=== PATIENT | female | born 1960 | race African-American/Black ===

== ENCOUNTER 2018-08-04 15:04 | Inpatient (IN) | payer MEDICAID ==
[~2018-08-04] VITALS: Ht 172.7 cm; Wt 69.9 kg
[2018-08-04] MEDS ORDERED: INSU100I28 SQ (15:10)
[2018-08-04 18:04] LABS: HEMATOCRIT. 34.2 % (36.0-48.0); HEMOGLOBIN. 10.9 g/dL (12.0-16.0); MEAN CORPUSCULAR HEMOGLOBIN 27.9 pg (28.0-32.0); MEAN CORPUSCULAR VOLUME 87.9 fL (81.0-99.0); MEAN PLATELET VOLUME 8.5 fl (7.4-10.4); PLATELET 456 x1000/uL (130-400); RED CELL DISTRIBUTION WIDTH 15.9 % (11.6-14.6)
[2018-08-04 18:06] LABS: CHLORIDE 90 mEq/L (98-107)
[2018-08-04] MEDS ORDERED: INSULIN REGULAR (DRIP) 100 UNITS in SODIUM CHLORIDE 0.9% 100 ML IV ONE (19:00)
[2018-08-04 19:04] LABS: HEPATITIS A AB IGM NEGATIVE (NEGATIVE)
[2018-08-04 19:38] LABS: PLATELET ESTIMATE INCREASED
[2018-08-04] MEDS ORDERED: INSULIN REGULAR (DRIP) 100 UNITS in SODIUM CHLORIDE 0.9% 100 ML IV SCH (19:45)
[2018-08-04 22:30] VITALS: BP_SYST 107; BP_SYST 113; BP_DIAS 63; BP_DIAS 67
[2018-08-04 22:45] VITALS: BP 124/83
[2018-08-04 23:00] VITALS: BP 119/72
[2018-08-04 23:15] VITALS: BP 115/72
[2018-08-04 23:30] VITALS: BP 105/71
[2018-08-04 23:45] VITALS: BP 101/69
[2018-08-05] VITALS (42 sets, daily range): BP systolic 86–135; BP diastolic 47–75
[2018-08-05 00:46] LABS: CLARITY URINE TURBID (CLEAR); COLOR URINE YELLOW (YELLOW); KETONES URINE 3+ (NEGATIVE); LEUKOCYTE ESTERASE URINE 3+ (NEGATIVE); NITRITE URINE NEGATIVE (NEGATIVE); OCCULT BLOOD URINE 3+ (NEGATIVE); PROTEIN URINE 2+ (NEGATIVE); SPECIFIC GRAVITY URINE 1.017 (1.005-1.030); UROBILINOGEN URINE 0.2 E.U./dL (0.2-1.0)
[2018-08-05 01:05] LABS: *AMPHETAMINES SCREEN URINE NEGATIVE (NEGATIVE); *BARBITURATES SCREEN URINE NEGATIVE (NEGATIVE); *BENZODIAZEPINES SCREEN URINE NEGATIVE (NEGATIVE); *COCAINE SCREEN URINE NEGATIVE (NEGATIVE); METHADONE URINE SCREEN NEGATIVE (NEGATIVE); OPIATES URINE SCREEN NEGATIVE (NEGATIVE)
[2018-08-05 01:06] LABS: CANNABINOID URINE SCREEN NEGATIVE (NEGATIVE); PHENCYCLIDINE URINE SCREEN NEGATIVE (NEGATIVE)
[2018-08-05 01:10] LABS: CHLORIDE 96 mEq/L (98-107)
[2018-08-05] MEDS: SODIUM CHLORIDE 0.45% 1,000 ML IV SCH ×2 (02:01→09:05)
[2018-08-05] MEDS: MORPHINE SULFATE 2 MG/ML CPJ (NOT FOR IM USE) IV PRN ×2 (02:08→23:23)
[2018-08-05] MEDS ORDERED: INSULIN REGULAR (DRIP) 100 UNITS in SODIUM CHLORIDE 0.9% 99 ML IV PRN (03:00)
[2018-08-05] MEDS: ONDANSETRON HCL 4MG/2ML INJ IV PRN ×2 (04:16→23:21)
[2018-08-05] MEDS ORDERED: DIPH1TAB PO (06:00)
[2018-08-05] MEDS ORDERED: HYDR-3282 PO (06:00)
[2018-08-05] MEDS ORDERED: INSULIN (06:00)
[2018-08-05 06:21] LABS: CHLORIDE 98 mEq/L (98-107)
[2018-08-05] MEDS: ENOXAPARIN 40MG/0.4ML SYR SUBCUT SCH (09:05)
[2018-08-05] MEDS ORDERED: DEXT 5%/0.45% NACL 1000ML 1,000 ML IV SCH (10:45)
[2018-08-05 12:28] LABS: HEPATITIS B SURFACE ANTIGEN NEGATIVE
[2018-08-05] MEDS: NYSTATIN POWDER 15GM TOP SCH ×2 (12:41→17:32)
[2018-08-05] MEDS: PIPERACILLIN/TAZ 3.375G PREMIX 50 ML IV SCH ×3 (12:41→23:21)
[2018-08-05] MEDS: OMEPRAZOLE 20MG CAPSULE EXTENDED RELEASE PO SCH (12:41)
[2018-08-05 13:19] LABS: HEMATOCRIT. 30.1 % (36.0-48.0); HEMOGLOBIN. 10.1 g/dL (12.0-16.0); MEAN CORPUSCULAR HEMOGLOBIN 27.5 pg (28.0-32.0); MEAN CORPUSCULAR VOLUME 81.9 fL (81.0-99.0); PLATELET 439 x1000/uL (130-400); RED BLOOD CELL COUNT 3.68 mill/uL (4.2-5.4); RED CELL DISTRIBUTION WIDTH 15.7 % (11.6-14.6)
[2018-08-05 13:43] LABS: CHLORIDE 100 mEq/L (98-107)
[2018-08-05 14:23] LABS: PLATELET ESTIMATE INCREASED
[2018-08-05] MEDS ORDERED: DEXTROSE 50% WATER 50ML SYRINGE IV PRN ×3 (17:00→18:45)
[2018-08-05] MEDS ORDERED: INSULIN REGULAR (DRIP) 100 UNITS in SODIUM CHLORIDE 0.9% 100 ML IV SCH (17:00)
[2018-08-05] MEDS: BLOOD SUGAR DIAGNOSTIC STRIP TEST SCH ×3 (17:26→21:06)
[2018-08-05] MEDS ORDERED: SODIUM CHLORIDE 0.9% 1,000 ML IV SCH (18:00)
[2018-08-05] MEDS ORDERED: INSULIN GLARGINE UD 100 UNITS/ML SYR SUBCUT SCH (19:00)
[2018-08-05] MEDS: INSULIN GLARGINE UD 100 UNITS/ML SYR SUBCUT SCH ×3 (19:13→22:22)
[2018-08-05] MEDS: INSULIN LISPRO 100 UNITS/ML SUBCUT SCH ×2 (19:15→21:07)
[2018-08-05] MEDS ORDERED: BLOOD SUGAR DIAGNOSTIC STRIP TEST SCH (21:00)
[2018-08-06] VITALS (24 sets, daily range): BP systolic 90–135; BP diastolic 33–77
[2018-08-06 04:56] LABS: HEMOGLOBIN. 9.8 g/dL (12.0-16.0); MEAN CORPUSCULAR HEMOGLOBIN 27.4 pg (28.0-32.0); MEAN CORPUSCULAR VOLUME 81.4 fL (81.0-99.0); MEAN PLATELET VOLUME 7.6 fl (7.4-10.4); PLATELET 406 x1000/uL (130-400); RED BLOOD CELL COUNT 3.56 mill/uL (4.2-5.4); RED CELL DISTRIBUTION WIDTH 15.5 % (11.6-14.6)
[2018-08-06 05:06] LABS: CHLORIDE 100 mEq/L (98-107)
[2018-08-06] MEDS: PIPERACILLIN/TAZ 3.375G PREMIX 50 ML IV SCH ×3 (06:15→17:45)
[2018-08-06] MEDS: SODIUM CHLORIDE 0.9% 1,000 ML IV SCH ×2 (06:16→22:18)
[2018-08-06 06:59] LABS: PLATELET ESTIMATE NORMAL
[2018-08-06] MEDS ORDERED: DEXT 5% WATER + KCL 40MEQ/L 250 ML IV SCH (07:00)
[2018-08-06] MEDS: INSULIN LISPRO 100 UNITS/ML SUBCUT SCH ×7 (07:56→22:14)
[2018-08-06] MEDS: BLOOD SUGAR DIAGNOSTIC STRIP TEST SCH ×4 (07:57→21:00)
[2018-08-06] MEDS: OMEPRAZOLE 20MG CAPSULE EXTENDED RELEASE PO SCH (08:01)
[2018-08-06] MEDS ORDERED: POTASSIUM CHLORIDE 20MEQ TABLET SR PO NR (09:15)
[2018-08-06] MEDS: ENOXAPARIN 40MG/0.4ML SYR SUBCUT SCH (10:08)
[2018-08-06] MEDS: POTASSIUM CHLORIDE INJ 40 MEQ in DEXT 5% WATER 250 ML IV NR (10:10)
[2018-08-06] MEDS: NYSTATIN POWDER 15GM TOP SCH ×3 (10:14→17:46)
[2018-08-06 16:37] LABS: T4 FREE 1.01 ng/dL (0.76-1.46)
[2018-08-06 17:38] LABS: FOLIC ACID (FOLATE) SERUM 7.5 ng/mL (>5.38)
[2018-08-06] MEDS ORDERED: INSULIN GLARGINE UD 100 UNITS/ML SYR SUBCUT SCH (22:00)
[2018-08-07] VITALS (25 sets, daily range): BP systolic 78–145; BP diastolic 45–117
[2018-08-07] MEDS: PIPERACILLIN/TAZ 3.375G PREMIX 50 ML IV SCH ×2 (01:01→07:06)
[2018-08-07] MEDS: MORPHINE SULFATE 2 MG/ML CPJ (NOT FOR IM USE) IV PRN (01:03)
[2018-08-07 05:52] LABS: HEMOGLOBIN. 9.7 g/dL (12.0-16.0); MEAN CORPUSCULAR HEMOGLOBIN 27.5 pg (28.0-32.0); MEAN PLATELET VOLUME 7.8 fl (7.4-10.4); PLATELET 446 x1000/uL (130-400); RED BLOOD CELL COUNT 3.53 mill/uL (4.2-5.4); RED CELL DISTRIBUTION WIDTH 15.8 % (11.6-14.6)
[2018-08-07 06:02] LABS: CHLORIDE 103 mEq/L (98-107)
[2018-08-07] MEDS: BLOOD SUGAR DIAGNOSTIC STRIP TEST SCH ×4 (07:51→21:51)
[2018-08-07] MEDS: ENOXAPARIN 40MG/0.4ML SYR SUBCUT SCH (08:36)
[2018-08-07] MEDS: INSULIN LISPRO 100 UNITS/ML SUBCUT SCH ×7 (08:39→21:00)
[2018-08-07] MEDS: SODIUM CHLORIDE 0.9% 1,000 ML IV SCH ×2 (08:40→13:02)
[2018-08-07] MEDS ORDERED: FAMOTIDINE 20MG TABLET PO SCH (09:00)
[2018-08-07] MEDS: OMEPRAZOLE 20MG CAPSULE EXTENDED RELEASE PO SCH ×2 (10:58→21:49)
[2018-08-07] MEDS: NYSTATIN POWDER 15GM TOP SCH ×3 (10:59→17:53)
[2018-08-07] MEDS: LEVOFLOXACIN 750MG PREMIX 150 ML IV SCH (13:02)
[2018-08-07] MEDS: INSULIN GLARGINE UD 100 UNITS/ML SYR SUBCUT SCH (21:51)
[2018-08-08] MEDS: MORPHINE SULFATE 2 MG/ML CPJ (NOT FOR IM USE) IV PRN (00:41)
[2018-08-08 04:00] VITALS: BP 112/72
[2018-08-08] MEDS: BLOOD SUGAR DIAGNOSTIC STRIP TEST SCH ×4 (05:57→21:04)
[2018-08-08] MEDS: OMEPRAZOLE 20MG CAPSULE EXTENDED RELEASE PO SCH ×2 (06:10→21:05)
[2018-08-08 08:00] VITALS: BP 102/66
[2018-08-08] MEDS: INSULIN LISPRO 100 UNITS/ML SUBCUT SCH ×7 (08:19→21:00)
[2018-08-08] MEDS: ENOXAPARIN 40MG/0.4ML SYR SUBCUT SCH (08:36)
[2018-08-08] MEDS: SODIUM CHLORIDE 0.9% 1,000 ML IV SCH (10:36)
[2018-08-08] MEDS: NYSTATIN POWDER 15GM TOP SCH ×3 (10:37→17:47)
[2018-08-08] MEDS: LEVOFLOXACIN 750MG PREMIX 150 ML IV SCH (11:20)
[2018-08-08 12:00] VITALS: BP 100/60
[2018-08-08 12:49] LABS: PLATELET ESTIMATE SLIGHTLY INCREASED
[2018-08-08 16:30] VITALS: BP 102/60
[2018-08-08] MEDS ORDERED: DIPHENOXYLATE/ATROPINE 2.5/0.025MG TABLET PO PRN (17:15)
[2018-08-08 20:00] VITALS: BP 118/77
[2018-08-08] MEDS: INSULIN GLARGINE UD 100 UNITS/ML SYR SUBCUT SCH (21:05)
[2018-08-09] VITALS: BP 127/77
[2018-08-09] MEDS: SODIUM CHLORIDE 0.9% 1,000 ML IV SCH ×2 (00:52→15:08)
[2018-08-09 04:00] VITALS: BP 131/76
[2018-08-09] MEDS: BLOOD SUGAR DIAGNOSTIC STRIP TEST SCH ×4 (06:31→21:00)
[2018-08-09 08:00] VITALS: BP 129/78
[2018-08-09] MEDS: OMEPRAZOLE 20MG CAPSULE EXTENDED RELEASE PO SCH ×2 (09:30→22:11)
[2018-08-09] MEDS: ENOXAPARIN 40MG/0.4ML SYR SUBCUT SCH (09:30)
[2018-08-09] MEDS: INSULIN LISPRO 100 UNITS/ML SUBCUT SCH ×7 (09:32→21:00)
[2018-08-09] MEDS: NYSTATIN POWDER 15GM TOP SCH ×3 (09:34→19:02)
[2018-08-09 10:56] LABS: HEMATOCRIT. 27.7 % (36.0-48.0); HEMOGLOBIN. 9.1 g/dL (12.0-16.0); MEAN CORPUSCULAR HEMOGLOBIN 27.1 pg (28.0-32.0); MEAN CORPUSCULAR VOLUME 82.9 fL (81.0-99.0); MEAN PLATELET VOLUME 7.2 fl (7.4-10.4); PLATELET 450 x1000/uL (130-400); RED BLOOD CELL COUNT 3.34 mill/uL (4.2-5.4); RED CELL DISTRIBUTION WIDTH 15.9 % (11.6-14.6)
[2018-08-09 11:20] LABS: CHLORIDE 106 mEq/L (98-107)
[2018-08-09] MEDS: LEVOFLOXACIN 750MG PREMIX 150 ML IV SCH (11:57)
[2018-08-09 12:00] VITALS: BP 120/72
[2018-08-09 16:00] VITALS: BP 120/75
[2018-08-09 17:44] LABS: PLATELET ESTIMATE INCREASED
[2018-08-09 20:00] VITALS: BP 115/65
[2018-08-09] MEDS: INSULIN GLARGINE UD 100 UNITS/ML SYR SUBCUT SCH (22:39)
[2018-08-09] MEDS ORDERED: ALPRAZOLAM 0.25 MG TABLET PO PRN (22:45)
[2018-08-10] VITALS (7 sets, daily range): BP systolic 103–139; BP diastolic 68–81
[2018-08-10] MEDS: SODIUM CHLORIDE 0.9% 1,000 ML IV SCH (02:37)
[2018-08-10] MEDS: BLOOD SUGAR DIAGNOSTIC STRIP TEST SCH ×3 (07:40→17:40)
[2018-08-10] MEDS: INSULIN LISPRO 100 UNITS/ML SUBCUT SCH ×6 (08:10→19:43)
[2018-08-10] MEDS: OMEPRAZOLE 20MG CAPSULE EXTENDED RELEASE PO SCH (09:30)
[2018-08-10] MEDS: NYSTATIN POWDER 15GM TOP SCH ×3 (09:31→19:42)
[2018-08-10] MEDS: ENOXAPARIN 40MG/0.4ML SYR SUBCUT SCH (09:31)
[2018-08-10] MEDS: LEVOFLOXACIN 750MG PREMIX 150 ML IV SCH (11:15)
[2018-08-11] MEDS ORDERED: LEVOFLOXACIN 250MG TABLET PO SCH (11:00)
== END 2018-08-10 20:18 | DRG 720 ==
LOC: ER 15:04 → EDBEDREQ 19:57 → CVICU 20:01 → EDBEDREQTM 20:06 → EDBEDREQ 20:06 → ENRESERV 21:20 → 7WST 08-07 23:21
PROVIDERS: ADMIT Internal Medicine; ATTEND Internal Medicine
DX: A41.50 Gram-negative sepsis, unspecified (principal); N17.0 Acute kidney failure with tubular necrosis; G92 Toxic encephalopathy; E11.10 Type 2 diabetes mellitus with ketoacidosis without coma; E46 Unspecified protein-calorie malnutrition; G35 Multiple sclerosis; D64.9 Anemia, unspecified; N39.0 Urinary tract infection, site not specified; E11.40 Type 2 diabetes mellitus with diabetic neuropathy, unspecified; X58.XXXA Exposure to other specified factors, initial encounter; R62.7 Adult failure to thrive; B96.20 Unspecified Escherichia coli [E. coli] as the cause of diseases classified elsewhere; E78.5 Hyperlipidemia, unspecified; S30.814A Abrasion of vagina and vulva, initial encounter; E86.0 Dehydration; Z87.81 Personal history of (healed) traumatic fracture; Z99.3 Dependence on wheelchair; Z85.41 Personal history of malignant neoplasm of cervix uteri; Z87.11 Personal history of peptic ulcer disease; Z79.4 Long term (current) use of insulin; Z79.899 Other long term (current) drug therapy; Z68.23 Body mass index [BMI] 23.0-23.9, adult; Y93.89 Activity, other specified; Y92.89 Other specified places as the place of occurrence of the external cause; Y99.8 Other external cause status
CPT/HCPCS: 36415; 70551; 71045; 74176; 80048; 80076; 80305; 82010; 82140; 82607; 82746; 82962; 83036; 83605; 83735; 83880; 84145; 84439; 84443; 84481; 84484; 86705; 86709; 86803; 87077; 87186; 87340; 93005; 96365; 96375; 97110; 97162; 97530; 99285; C1893; J1650; J1815; J1956; J2270; J2405; J2543; J3480; J7030; J7050; J7060; A4315

== ENCOUNTER 2018-10-19 14:15 | Emergency (ER) | payer MEDICAID ==
[~2018-10-19] VITALS: Ht 172.7 cm; Wt 75.0 kg
[~2018-10-19 14:15] MED LIST: DIPH1TAB PO; HYDR-3282 PO; INSU100I28 SQ; INSULIN
[2018-10-19] MEDS ORDERED: HYDROCODONE/ACETAMINOPHEN 5/325MG TABLET PO STA (15:03)
[2018-10-19] MEDS ORDERED: SODIUM CHLORIDE 0.9% 1,000 ML IV ONE (15:03)
[2018-10-19 15:29] LABS: HEMATOCRIT. 30.8 % (36.0-48.0); HEMOGLOBIN. 10.4 g/dL (12.0-16.0); MEAN CORPUSCULAR HEMOGLOBIN 24.1 pg (28.0-32.0); MEAN CORPUSCULAR VOLUME 71.7 fL (81.0-99.0); RED CELL DISTRIBUTION WIDTH 20.1 % (11.6-14.6)
[2018-10-19 15:31] LABS: CHLORIDE 103 mEq/L (98-107)
[2018-10-19 15:37] LABS: ETHANOL BLOOD < 10 mg/dL
[2018-10-19 15:50] LABS: MEAN PLATELET VOLUME 8.3 fl (7.4-10.4); PLATELET 331 x1000/uL (130-400)
[2018-10-19 15:53] LABS: PLATELET ESTIMATE NORMAL
[2018-10-19 18:18] LABS: CLARITY URINE CLEAR (CLEAR); COLOR URINE YELLOW (YELLOW); KETONES URINE NEGATIVE (NEGATIVE); LEUKOCYTE ESTERASE URINE NEGATIVE (NEGATIVE); NITRITE URINE NEGATIVE (NEGATIVE); OCCULT BLOOD URINE TRACE (NEGATIVE); PROTEIN URINE 2+ (NEGATIVE); SPECIFIC GRAVITY URINE 1.011 (1.005-1.030); UROBILINOGEN URINE 0.2 E.U./dL (0.2-1.0)
[2018-10-19 18:26] LABS: *AMPHETAMINES SCREEN URINE NEGATIVE (NEGATIVE); CANNABINOID URINE SCREEN NEGATIVE (NEGATIVE); OPIATES URINE SCREEN NEGATIVE (NEGATIVE); PHENCYCLIDINE URINE SCREEN NEGATIVE (NEGATIVE)
[2018-10-19 18:28] LABS: *BARBITURATES SCREEN URINE NEGATIVE (NEGATIVE); *BENZODIAZEPINES SCREEN URINE NEGATIVE (NEGATIVE); *COCAINE SCREEN URINE NEGATIVE (NEGATIVE); METHADONE URINE SCREEN NEGATIVE (NEGATIVE)
[2018-10-19 18:46] VITALS: BP 178/100
== END 2018-10-19 19:11 | disposition home or self-care (01) ==
LOC: ER 16:40
DX: R10.9 Unspecified abdominal pain (principal); E11.65 Type 2 diabetes mellitus with hyperglycemia; Z79.4 Long term (current) use of insulin; Z85.41 Personal history of malignant neoplasm of cervix uteri; Z96.649 Presence of unspecified artificial hip joint
CPT/HCPCS: 36415; 71045; 74176; 80053; 80305; 80320; 81003; 83880; 84484; 85025; 85610; 93005; 99284; J7030; G0480